=== PATIENT | female | born 1965 | race Caucasian/White ===

== ENCOUNTER 2018-04-05 15:04 | Outpatient (CLI) | payer BC | END 2018-04-05 15:05 | disposition home or self-care (01) | LOC: BICMAMMO 15:04 | PROVIDERS: ATTEND Obstetrics & Gynecology | DX: Z12.31 Encounter for screening mammogram for malignant neoplasm of breast (principal); R92.1 Mammographic calcification found on diagnostic imaging of breast; Z80.3 Family history of malignant neoplasm of breast | CPT/HCPCS: 77063; 77067 ==

== ENCOUNTER 2018-06-17 09:21 | Outpatient (CLI) | payer BC ==
--- NOTE | 2018-06-17 11:23 | RAD ---
ESOPHAGRAM WITH GASTROGRAFIN: HISTORY: Esophageal stricture, status post recent EGD and concern for extravasation/leak. FINDINGS: An esophagram with Gastrografin was performed in the erect and AMIN positions. There is prompt passag e of contrast from the esophagus into the stomach. No obstructing mass, stricture, or contrast extra vasation is seen. A small hiatal hernia is present. IMPRESSION: 1. No evidence of leak. 2. Small hiatal hernia. Discussed over the telephone with Dr. Nalini Melendez at 10:05 a.m. LIZETH LOPEZ POS: DALIA
[2018-06-17] MEDS ORDERED: MD-Gastroview 120 ML BOT ONE (13:40)
== END 2018-06-17 09:22 | disposition home or self-care (01) ==
LOC: RAD 09:21
PROVIDERS: ATTEND Internal Medicine Gastroenterology
DX: K22.2 Esophageal obstruction (principal); R13.10 Dysphagia, unspecified; K44.9 Diaphragmatic hernia without obstruction or gangrene
CPT/HCPCS: 74220

== ENCOUNTER 2023-02-08 15:23 | Outpatient (CLI) | payer BC | END 2023-02-08 15:24 | disposition home or self-care (01) | LOC: BICRAD 15:23 | PROVIDERS: ATTEND Family Medicine | DX: S16.1XXA Strain of muscle, fascia and tendon at neck level, initial encounter (principal); M47.812 Spondylosis without myelopathy or radiculopathy, cervical region | CPT/HCPCS: 72050 ==

== ENCOUNTER 2025-09-04 14:05 | Outpatient (CLI) | payer BC | END 2025-09-04 14:06 | disposition home or self-care (01) | LOC: BICMAMMO 14:05 | PROVIDERS: ATTEND Family Medicine | DX: Z78.0 Asymptomatic menopausal state (principal); M85.851 Other specified disorders of bone density and structure, right thigh | CPT/HCPCS: 77080 ==

== ENCOUNTER 2025-09-04 14:42 | Outpatient (CLI) | payer BC | END 2025-09-04 14:43 | disposition home or self-care (01) | LOC: ULT 14:42 | PROVIDERS: ATTEND Family Medicine | DX: E04.2 Nontoxic multinodular goiter (principal) | CPT/HCPCS: 76536 ==